=== PATIENT | female | born 1995 | race Two or more races ===

== ENCOUNTER 2019-11-05 07:16 | Inpatient (IN) | payer OTHER ==
[~2019-11-05] VITALS: Ht 160 cm; Wt 75.3 kg
[2019-11-05] MEDS ORDERED: PRENATAL + DHA1 EAC1 PO (09:24)
== END 2019-11-08 14:20 | disposition home or self-care (01) | DRG 788 ==
LOC: LDR 07:16 → OB/GYN 07:16
PROVIDERS: ADMIT Obstetrics & Gynecology
PROC: 3E033VJ Introduction of Other Hormone into Peripheral Vein, Percutaneous Approach (ICD-10-PCS; 2019-11-05)
PROC: 4A1HXCZ Monitoring of Products of Conception, Cardiac Rate, External Approach (ICD-10-PCS; 2019-11-05)
PROC: 10D00Z1 Extraction of Products of Conception, Low, Open Approach (ICD-10-PCS; principal; 2019-11-05 18:15)
DX: O82 Encounter for cesarean delivery without indication (principal); O76 Abnormality in fetal heart rate and rhythm complicating labor and delivery; O61.0 Failed medical induction of labor; Z3A.39 39 weeks gestation of pregnancy; Z37.0 Single live birth